=== PATIENT | female | born 2000 | race Caucasian/White ===

== ENCOUNTER 2022-03-30 14:03 | Emergency (ER) | payer BC, SELFPAY ==
[2022-03-30 14:04] VITALS: BP 115/78; PULSE 78; RESP 16; TEMP 37.2; O2SAT 98
--- NOTE | 2022-03-30 15:11 | EDS_ITS ---
HPI History of Present Illness Chief Complaint: Laceration Detail of Chief Complaint: Laceration to left face Informant: patient Narrative Narrative: Patient presents to the emergency department complaint of a laceration. Patient was playing in a field hockey game when she was struck with a field hockey stick in the left side of the face. Patient sustained a laceration lateral to the left orbit. No loss of consciousness. She denies visual changes. She is unsure of her last tetanus. Patient visiting from [place]. [facility] Medical History no medical history Home Medications NK 03/30/22 [History Last Taken Unknown] Allergy/AdvReac Type Severity Reaction Status Date / Time No Known Allergies Allergy Verified 03/30/22 14:04 Surgical History no surgical history Social History Smoking Status: Never smoker ROS ROS ED Review of Systems ROS Unobtainable: other Constitutional Constitutional ED: Reports lethargy; Denies chills, fever(s), sweats or weight loss Eyes Eyes: Denies blurry vision, change in vision or diplopia ENT ENT ED: Reports other Details: Laceration left face ; Denies rhinorrhea or sore throat Cardiovascular Cardiovascular: Reports chest pain and racing heartbeat; Denies orthopnea Respiratory/Chest Respiratory/Chest: Reports dyspnea and dyspnea on exertion; Denies cough, orthopnea or sputum Gastrointestinal Gastrointestinal: Denies abdominal pain, diarrhea, nausea or vomiting Genitourinary Genitourinary ED: Denies dysuria, hematuria or urinary frequency Musculoskeletal Musculoskeletal: Denies arthralgias, back pain, myalgias or neck pain Integumentary Denies abscess, Abrasions or rash Neurologic Neurologic: Denies headache(s) or weakness Psychiatric Psychiatric: Denies anxiety, depression or suicidal thoughts Endocrine Endocrinology: Denies polydipsia, polyphagia or polyuria Hematologic/Lymphatic Hematologic/Lymphatic: Denies easy bleeding, easy bruising or lymphadenopathy Allergic/Immunologic Allergic/Immunologic ED: Denies mouth swelling, tongue swelling or urticaria EXAM Physical Exam Const Vital Signs: 03/30/22 14:04 Temperature 98.9 F Temperature Source Temporal Pulse Rate 78 Respiratory Rate 16 Blood Pressure 115/78 Blood Pressure Mean 90 Pulse Ox 98 Oxygen Delivery Method Room Air Positive well nourished and well developed General Appearance ED: well developed and NAD HEENT Reports TM's clear and moist mucous membranes HEENT Narrative: Patient has a 2 cm laceration approximately 3 cm lateral to the lateral canthus of the left eye. The wound is gaping. No significant bony tenderness on exam. Extraocular muscle movements are normal and painless. normocephalic and atraumatic; Negative for trauma or tenderness Tympanic Membrane ED: Yes TM's clear Eyes PERRL and EOMs intact bilaterally General Eye ED: Negative for pale conjunctiva or scleral icterus Neck no lymphadenopathy, supple and no JVD General: Negative for tenderness Chest Wall inspection of chest normal and palpation of chest normal Chest: Negative for tenderness Resp normal respiratory effort and clear to auscultation bilaterally Effort and Inspection: Negative for respiratory distress or pain with movement Auscultation: Negative for rhonchi, wheezes or diminished lung sounds Cardio regular rate, regular rhythm, S1 normal heart sound, S2 normal heart sound and no murmurs Peripheral Pulses: pulses 2+ throughout GI normal to inspection, nondistended, normoactive bowel sounds, soft to palpation, non-tender, non-distended and no masses Back/Spine no CVA tenderness and no thoracic nor lumbar tenderness Extremity normal to inspection General Extremety ED: Negative for edema General Extremity: Negative for edema Neuro oriented x3, CN's II-XII intact bilaterally, no sensory deficits noted and gait normal Sensorium / Orientation: awake, alert, oriented to person, oriented to place and oriented to time Motor Exam: strength 5/5 throughout and strength abnormal Psych mental status grossly normal Skin no rashes or lesions noted and no wounds PROC Procedures Lacerations Facial laceration: Length: 0.79 in Depth: Sub Q Shape: Linear Prep: Sterile Conditions and Shure-Clens Laceration repair: Irrigated, Lidocaine and Local Irrigated (ml): 50 Number of Sutures/[place]: 2 Suture Information: Ethilon and Simple MDM MDM MDM Narrative Medical decision making narrative: Patient presented with facial laceration lateral to the orbit. At this point I do not feel any imaging is indicated. Patient tolerated procedure well see procedure note regarding suture repair. Patient advised to follow-up with primary care physician for suture removal in 5 days. She is to follow-up if increased redness, purulent drainage, or condition worsen anyway. Discharge Plan Triage Chief Complaint: Laceration ED Provider: George Aldana Dx/Rx/DC Orders Clinical Impression: Facial laceration Instructions: ED Laceration: All Closures Prescriptions: No Action NK Activity Restrictions/Additional Instructions: Follow-up with your primary care physician in 5 days for suture removal Disposition Disposition: Home, Self Care
[2022-03-30] MEDS: Lidocaine 1% (20 ml mdv) 20 ML Vial 4 ML INFILT (15:41)
== END 2022-03-30 15:49 | disposition home or self-care (01) ==
LOC: ED 15:48
PROVIDERS: Emergency Provider Emergency Medicine; Visit Provider Emergency Medicine
DX: S01.81XA Laceration without foreign body of other part of head, initial encounter (principal); W21.211A Struck by field hockey stick, initial encounter
CPT/HCPCS: 12011; 99283